=== PATIENT | female | born 1950 | race Caucasian/White ===

== ENCOUNTER 2016-05-30 11:15 | Day surgery (SDC) | payer BC, OTHER ==
[~2016-05-30] VITALS: Ht 152.4 cm; Wt 70.3 kg
[~2016-05-30 11:15] MED LIST: CRESTOR20 MG PO; CYMBALTA60 MG PO; FEROSUL325 MG PO; GLIMEPIRIDE4 MG PO; IRON IV; METFORMIN HCL1000 MG PO; NEBULIZER MC; ONE DAILY WOME1 EAC1 PO; PANTOPRAZOLE SO40 MG PO; POTASSIUM-9999 MG PO; PROAIR HFA8.5 GM IH; PROAIR RESPICL90 MCG IH; PROVENTIL,2.5 MG/3 M IH; SPIRIVA1 INHALATI IH; VALSARTAN-HCTZ1 EAC1 PO; VITAMIN B125000 MCG PO
[2016-05-30 12:06] LABS: POINT-OF-CARE METER ID UU13113696
[2016-05-30 13:56] LABS: POINT-OF-CARE METER ID UU13113819
[2016-05-31] MEDS ORDERED: ALPRAZOLAM0.5 MG PO (13:04)
[2016-05-31] MEDS ORDERED: HUMULIN R100 UNITS/ SC (16:40)
== END 2016-05-30 17:10 | disposition home or self-care (01) ==
LOC: CATH 11:15
PROVIDERS: Internal Medicine Cardiovascular Disease
DX: I35.0 Nonrheumatic aortic (valve) stenosis (principal); I10 Essential (primary) hypertension; J44.9 Chronic obstructive pulmonary disease, unspecified; E11.9 Type 2 diabetes mellitus without complications; D64.9 Anemia, unspecified
CPT/HCPCS: 82948; C1769; C1887; C1894; J1644; J1815; J2250; J3010; J7050

== ENCOUNTER 2016-05-31 11:31 | Emergency (ER) | payer BC, OTHER ==
[~2016-05-31] VITALS: Ht 152.4 cm; Wt 70.4 kg
[2016-05-31 12:40] LABS: CHLORIDE 99 mEq/L (99-109); SODIUM 131 mEq/L (136-147)
[2016-05-31 12:43] LABS: ANION GAP 10 MEQ/L (2-14)
[2016-05-31 12:46] LABS: GFR ESTIMATE (CALCULATED) > 59 mL/min/
[2016-05-31 12:47] LABS: POTASSIUM 3.5 mEq/L (3.7-5.4); UREA NITROGEN (BUN) 23 mg/dL (9-23)
[2016-05-31 12:57] LABS: GLUCOSE 434 mg/dL (70-99)
[2016-05-31] MEDS ORDERED: ALPRAZOLAM0.5 MG PO (13:04)
[2016-05-31 15:39] LABS: POINT-OF-CARE METER ID UU13113778; POINT-OF-CARE USER ID NUTJLF39
[2016-05-31] MEDS ORDERED: HUMULIN R100 UNITS/ SC (16:40)
[2016-05-31 16:59] VITALS: BP 121/62
== END 2016-05-31 16:59 | disposition home or self-care (01) ==
LOC: EME 11:31
PROVIDERS: Physician Assistant
DX: R20.2 Paresthesia of skin (principal); E11.65 Type 2 diabetes mellitus with hyperglycemia; I10 Essential (primary) hypertension; E78.5 Hyperlipidemia, unspecified; Z88.6 Allergy status to analgesic agent
CPT/HCPCS: 80048; 82948; 93926; 93971; 99281; 99285; J7040